=== PATIENT | male | born 1975 | race Caucasian/White ===

== ENCOUNTER 2019-01-01 23:42 | Emergency (ER) | payer BC, OTHER ==
[2019-01-01 23:48] VITALS: BP 107/70; PULSE 107; TEMP 103; BMI 22.3
[2019-01-02] MEDS ORDERED: ACETAMINOPHEN 500 MG TABLET (FP) ONE (00:01)
[2019-01-02] MEDS ORDERED: ACETAMINOPHEN 500 MG TABLET (FP) PO ONE (00:05)
--- NOTE | 2019-01-02 00:10 | PDOC ---
History of Present Illness - General Chief Complaint: Cold Symptoms Stated Complaint: FEVER Time Seen by Provider: 01/01/19 23:48 - History of Present Illness Initial Comments: 01/02/19 00:21 This otherwise healthy 43-year-old man presents with 1 day history of fever, arthralgias, mild sore throat. Patient states that he awakened today with no symptoms; while at work during the day, he developed subjective fever with body aches. When he arrived home this evening fever was measured at 101 F; just prior to presentation, 103 F oral temperature was measured. He has not taken any medication for the fever or body aches except for 1 dose of azithromycin ( left over from prescription for strep throat). Patient works in close contact with [employer] ([employer]); no known sick contacts in his family/friends. No recent travel History of strep pharyngitis episode a few years ago No daily medications No known allergies Non-smoker; no daily alcohol use; no other recreational drug use PMD:([facility]) Past History - Past Medical History Allergies/Adverse Reactions: Allergies Allergy/AdvReac Type Severity Reaction Status Date / Time No Known Allergies Allergy Unverified 10/14/13 11:53 Home Medications: Ambulatory Orders NK [No Known Home Medication] 01/01/19 COPD: No - Psycho Social/Smoking Cessation Hx Smoking History: Never smoked Review of Systems - Review of Systems Able to Perform ROS?: Yes Comments:: 12 point review of systems is negative except for what is noted in the history of present illness *Physical Exam - Vital Signs Last Vital Signs Temp Pulse Resp BP Pulse Ox 103 F H 107 H 16 107/70 98 01/01/19 23:45 01/01/19 23:45 01/01/19 23:45 01/01/19 23:45 01/01/19 23:45 - Physical Exam Comments: GENERAL: Adult male, alert and oriented x3, no acute distress HEAD: Normal with no signs of trauma. EYES: PERRLA, EOMI, sclera anicteric, conjunctiva clear. ENT: Ears normal, nares patent, oropharynx mildly erythematous without exudates or masses. Dry mucous membranes. NECK: Normal range of motion, supple without lymphadenopathy, JVD, or masses. LUNGS: Breath sounds equal, clear to auscultation bilaterally. No wheezes, and no crackles. HEART:Regular rate and rhythm, normal S1 and S2 without murmur, rub or gallop. ABDOMEN:.normal bowel sounds No guarding,tenderness or rebound.No masses No distention. EXTREMITIES: Normal range of motion, no edema. No clubbing or cyanosis. No erythema, or tenderness. NEUROLOGICAL: Cranial nerves II through XII grossly intact. Normal speech. No focal neurological deficits. MUSCULOSKELETAL: Back non-tender to palpation, no CVA tenderness SKIN: Warm, Dry, normal turgor, no rashes or lesions noted. Medical Decision Making - Medical Decision Making This otherwise healthy 43-year-old man presents with 1 day history of fever, sore throat, body aches and malaise. He works in [employer] in close contact with general population. History of strep pharyngitis in the recent past. Exam as noted. Nasopharyngeal swab for rapid influenza A/influenza B taken. Also, because of his history of strep pharyngitis in the past, quick strep/ throat culture swab sent. Patient given acetaminophen 1 g by mouth. He will be discharged with recommendations for rest (no work until January 05), plenty of fluids and Tylenol/Motrin as needed for pain and body aches. He should return to the emergency room if he develops vomiting, shortness of breath/wheezing or persistent high fever If either diagnostic test is positive, patient will be contacted and prescription for appropriate medication sent to his pharmacy Discharge - Discharge Information Problems reviewed: Yes Clinical Impression/Diagnosis: Febrile illness, acute Condition: Stable Disposition: HOME - Follow up/Referral - Patient Discharge Instructions Patient Printed Discharge Instructions: DI for Viral Syndrome Additional Instructions: Rest; drink plenty of water No work until January 05 Alternate Tylenol with Advil as needed for fever and body aches If either throat culture or flu test is positive, we will leave you voicemail message and prescribe medication to your pharmacy Return to ER if you have vomiting, persistent high fever, severe cough or shortness of breath Follow-up with your doctor within 1 week - Post Discharge Activity Work/Back to School Note: Back to Work
== END 2019-01-02 00:19 | disposition home or self-care (01) ==
LOC: FER 23:42
DX: R50.9 Fever, unspecified (principal)
CPT/HCPCS: 87070; 87804; 87880; 99282-25